=== PATIENT | female | born 1995 | race Caucasian/White ===

== ENCOUNTER → 2018-07-02 | Outpatient (CLI) | payer OTHER ==
[~2018-07-02] MED LIST: IBUP-1223 PO; OXYC-302 PO
== END | disposition home or self-care (01) ==
LOC: CFH 10:17
PROVIDERS: ATTEND Specialist
DX: N63.12 Unspecified lump in the right breast, upper inner quadrant (principal)

== ENCOUNTER 2019-06-11 11:23 | Emergency (ER) | payer OTHER ==
[~2019-06-11] VITALS: Ht 152.4 cm; Wt 47.7 kg
[2019-06-11 11:45] VITALS: BP 117/71
--- NOTE | 2019-06-11 12:01 | NUR ---
PT REFUSED PAIN MED AND ICE PACK.
--- NOTE | 2019-06-11 14:18 | NUR ---
PT TO DC DESK PER W/C, HOLDING CRUTCHES. CRUTCHES SIZED & USE EXPLAINED EARLIER PER OR NURSE MANAGER.
== END 2019-06-11 14:19 | disposition home or self-care (01) ==
LOC: ED 14:13
DX: S92.355A Nondisplaced fracture of fifth metatarsal bone, left foot, initial encounter for closed fracture (principal); G89.11 Acute pain due to trauma; X50.1XXA Overexertion from prolonged static or awkward postures, initial encounter; Y93.89 Activity, other specified; Y92.098 Other place in other non-institutional residence as the place of occurrence of the external cause; Y99.8 Other external cause status
CPT/HCPCS: 29515; 99283

== ENCOUNTER 2020-05-23 03:17 | Emergency (ER) | payer OTHER ==
[~2020-05-23] VITALS: Ht 147.3 cm; Wt 51.0 kg
--- NOTE | 2020-05-23 04:00 | NUR ---
PT TO ULTRASOUND
--- NOTE | 2020-05-23 04:23 | NUR ---
PT BACK FROM ULTRASOUND. AMBULATED STEADY TO RESTROOM FOR UA SAMPLE.
[2020-05-23 04:43] LABS: HCG UR SG 1.026 (1.003-1.030)
[2020-05-23 04:47] LABS: MICROSCOPIC INDICATED
[2020-05-23 04:50] LABS: BASOPHILS % (AUTO) 1 % (0-1); EOSINOPHILS % (AUTO) 2 % (1-7); LYMPHOCYTES % (AUTO) 19 % (22-44); MEAN CORPUSCULAR HEMOGLOBIN 30.9 pg (27.0-34.8); MEAN CORPUSCULAR HGB CONC 34.6 g/dL (32.4-35.8); MEAN PLATELET VOLUME 7.1 fL (7.4-10.4); MONOCYTES % (AUTO) 7 % (2-9); NEUTROPHILS % (AUTO) 72 % (42-75); PLATELET COUNT 366 x10^3/uL (130-400); RED BLOOD COUNT 4.83 x10^6/uL (3.82-5.3); RED CELL DISTRIBUTION WIDTH 12.6 % (9.6-15.2)
[2020-05-23 04:53] LABS: ALANINE AMINOTRANSFERASE 17 U/L (12-78); ALBUMIN 3.9 g/dL (3.4-5.0); ANION GAP 5 mmol/L (5-15); CALCIUM 9.1 mg/dL (8.5-10.1); CHLORIDE 109 mmol/L (98-107); CREATININE 0.82 mg/dL (0.55-1.02)
[2020-05-23 04:54] LABS: MD NO
[2020-05-23 04:56] LABS: ALKALINE PHOSPHATASE 64 U/L (45-117); BILIRUBIN,TOTAL 0.7 mg/dL (0.2-1.0); TOTAL PROTEIN 7.5 g/dL (6.4-8.2)
[2020-05-23 05:00] VITALS: BP 108/65
--- NOTE | 2020-05-23 05:08 | NUR ---
PT RESTING IN [facility], PROVIDED WARM BLANKET, NO OTHER NEEDS AT THIS TIME, AWAITING US AND UA RESULTS
--- NOTE | 2020-05-23 05:16 | NUR ---
REPORT FROM JONAS LUGO
[2020-05-23] MEDS ORDERED: CEFDINIR 300 MG CAPSULE ONE (05:48)
[2020-05-23] MEDS ORDERED: CEFDINIR 300 MG CAPSULE PO ONE (06:00)
== END 2020-05-23 07:35 | disposition home or self-care (01) ==
LOC: ED 05:56
DX: N30.01 Acute cystitis with hematuria (principal); R10.9 Unspecified abdominal pain; F17.200 Nicotine dependence, unspecified, uncomplicated
CPT/HCPCS: 36415; 76700; 80053; 81001; 81025; 83690; 85025; 87077; 87086; 87186; 99284